=== PATIENT | male | born 1965 | race Caucasian/White ===

== ENCOUNTER → 2019-01-01 | Day surgery (SDC) | payer OTHER ==
[~2019-01-01] MED LIST: Lactated Ringers 1,000 ML IV SCH; Propofol 200 MG/20 ML SDV IV ONE
[2019-01-01 10:42] VITALS: BP 126/76
--- NOTE | 2019-01-04 09:52 | OR ---
DATE OF OPERATION: 01/01/2019 PREOPERATIVE DIAGNOSIS: SCREENING COLONOSCOPY. POSTOPERATIVE DIAGNOSIS: 1. SCREENING COLONOSCOPY. 2. TUBULAR ADENOMAS X5. SURGEON: José Newton MD PROCEDURE: FULL-LENGTH COLONOSCOPY WITH SNARE POLYPECTOMY X4, FORCEPS POLYP REMOVAL X1. ANESTHESIA: MAC via GROUND INSTRUCTOR BASIC. COMPLICATIONS: None. SPECIMEN: Five tubular adenomas, all 0.5 cm or less, left colon. RECOMMENDATIONS: Followup colonoscopy in 3 years. INDICATIONS: The patient presented for requesting a screening colonoscopy due to his age. His primary provider is in [place]. DESCRIPTION OF PROCEDURE: The patient was prepped and draped, placed in the left lateral decubitus position. A lubricated Olympus colonoscope was inserted and easily advanced to the cecum. We were able to directly visualize the ileocecal valve and appendiceal orifice. The bowel prep was excellent. Upon withdrawal of the scope; cecum, ascending, and transverse colons were completely benign. No signs of any lesions in the descending area. In the proximal sigmoid colon, the patient had a small flat tubular adenoma, easily removed with 2 forceps biopsies in its entirety. Proceeding to the mid sigmoid colon, the patient had 2 stalked tubular adenomas, each removed with snare and suctioned into polyp trap #1 without complication. In the distal sigmoid colon, the patient had his next polyp, a little larger than the others, approaching or just over 0.5 cm in size, also removed with a snare and suctioned into polyp trap #2. His last polyp was at the rectosigmoid junction, small, stalked, and easily removed with a snare and suctioned into polyp trap #3 without complication. The rectal vault appeared benign. Retroflexion of the scope in the rectum showed no perianal lesions. Air was suctioned and scope removed without complication. ACE/LUIGI /[id number]
== END ==
LOC: CC.SDS 08:36
PROVIDERS: ATTEND Family Medicine
DX: Z12.11 Encounter for screening for malignant neoplasm of colon (principal); D12.5 Benign neoplasm of sigmoid colon; D12.7 Benign neoplasm of rectosigmoid junction; I10 Essential (primary) hypertension; E78.5 Hyperlipidemia, unspecified; E11.9 Type 2 diabetes mellitus without complications; Z87.891 Personal history of nicotine dependence; Z79.82 Long term (current) use of aspirin; Z79.84 Long term (current) use of oral hypoglycemic drugs; Z79.899 Other long term (current) drug therapy
CPT/HCPCS: 45385; J2704

== ENCOUNTER → 2022-02-01 | Day surgery (SDC) | payer OTHER ==
[~2022-02-01] MED LIST changes: +Ketamine 200 MG/20 ML MDV ONE; -Propofol 200 MG/20 ML SDV IV ONE; +Propofol 200 MG/20 ML SDV ONE; +fentaNYL 100 MCG/2 ML SDV ONE
[2022-02-01 08:44] VITALS: BP 119/77; PULSE 77
== END ==
LOC: CC.SDS 07:08
PROVIDERS: ATTEND Family Medicine
DX: Z12.11 Encounter for screening for malignant neoplasm of colon (principal); K62.1 Rectal polyp; I10 Essential (primary) hypertension; E78.5 Hyperlipidemia, unspecified; E11.9 Type 2 diabetes mellitus without complications; Z79.899 Other long term (current) drug therapy; Z79.82 Long term (current) use of aspirin; Z79.84 Long term (current) use of oral hypoglycemic drugs; Z98.890 Other specified postprocedural states
CPT/HCPCS: 00812; J2704; J3010; J7120